=== PATIENT | male | born 1960 | race Asian ===

== ENCOUNTER 2019-07-22 07:51 | Inpatient (IN) | payer MEDICARE ==
[~2019-07-22] VITALS: Ht 172.7 cm; Wt 75.8 kg
[~2019-07-22 07:51] MED LIST: AZIT250T PO; CARV12 PO; GUAIFDM PO; LOSA-88 PO; NIFE-39 PO
[2019-07-22] MEDS ORDERED: SODIUM CHLORIDE 0.9% 1,000 ML IV ONE (08:45)
[2019-07-22 08:47] LABS: BASOPHILS % (AUTO) 0.2 % (0.0-2.0); EOSINOPHILS % (AUTO) 0.5 % (1.0-6.0); HEMATOCRIT 21.8 % (41-53); HEMOGLOBIN 7.2 g/dL (13.5-17.5); LYMPHOCYTES # (AUTO) 0.6 K/uL (1.0-4.8); LYMPHOCYTES % (AUTO) 4.9 % (22.0-44.0); MEAN CORPUSCULAR HEMOGLOBIN 29.6 pg (26.0-34.0); MEAN CORPUSCULAR VOLUME 90 fL (80-100); MONOCYTES # (AUTO) 0.7 K/uL (0.1-1.0); PLATELET COUNT (AUTO) 145 K/uL (150-450); RED BLOOD CELL COUNT(AUTO) 2.44 MIL/uL (4.50-5.90); RED CELL DISTRIBUTION WIDTH 14.5 % (11.5-14.5)
[2019-07-22 08:48] LABS: NEUTROPHILS % (AUTO) 88.4 % (40.0-70.0)
[2019-07-22 09:01] LABS: CALCIUM, TOTAL 6.9 mg/dL (8.8-10.5); CREATININE 10.06 mg/dL (0.60-1.30); POTASSIUM 4.1 mmol/L (3.5-5.1)
[2019-07-22 09:07] LABS: ALBUMIN 2.5 g/dL (3.4-5.0); BILIRUBIN,TOTAL 0.8 mg/dL (0.1-1.0); TOTAL PROTEIN, SERUM 6.1 g/dL (6.4-8.2)
[2019-07-22] MEDS ORDERED: IPRATROPIUM BROMIDE 0.5 MG/2.5 ML NEB SOLUTION NEB PRN (13:00)
[2019-07-22] MEDS ORDERED: ONDANSETRON HCL 4 MG/2 ML VIAL IVP PRN (13:00)
[2019-07-22] MEDS ORDERED: BISACODYL 10 MG RECTAL RECTAL SUPPOSITORY PR PRN (13:00)
[2019-07-22] MEDS ORDERED: 0.9% SODIUM CHLORIDE 10 ML SYRINGE IVP PRN (13:00)
[2019-07-22] MEDS ORDERED: DOCUSATE SODIUM 100 MG CAPSULE PO PRN (13:00)
[2019-07-22] MEDS ORDERED: ALBUTEROL SULFATE 2.5 MG/0.5 ML NEB SOLUTION NEB PRN (13:00)
[2019-07-22] MEDS: PANTOPRAZOLE SODIUM 40 MG DR TABLET PO SCH (13:04)
[2019-07-22 17:57] VITALS: BP 135/56
[2019-07-22 20:43] VITALS: BP 124/79
[2019-07-22] MEDS: ACETAMINOPHEN 325 MG TABLET PO PRN (20:50)
[2019-07-23] VITALS (9 sets, daily range): BP systolic 121–210; BP diastolic 65–89
[2019-07-23 07:24] LABS: BASOPHILS % (AUTO) 0.2 % (0.0-2.0); EOSINOPHILS % (AUTO) 0.3 % (1.0-6.0); HEMATOCRIT 21.7 % (41-53); HEMOGLOBIN 7.1 g/dL (13.5-17.5); LYMPHOCYTES # (AUTO) 0.6 K/uL (1.0-4.8); LYMPHOCYTES % (AUTO) 4.2 % (22.0-44.0); MEAN CORPUSCULAR HEMOGLOBIN 29.2 pg (26.0-34.0); MEAN CORPUSCULAR HGB CONC 32.9 G/dL (31.0-37.0); MEAN CORPUSCULAR VOLUME 89 fL (80-100); MONOCYTES # (AUTO) 1.1 K/uL (0.1-1.0); MONOCYTES % (AUTO) 7.4 % (2.0-9.0); NEUTROPHILS # (AUTO) 12.6 K/uL (1.8-7.7); PLATELET COUNT (AUTO) 221 K/uL (150-450); RED BLOOD CELL COUNT(AUTO) 2.45 MIL/uL (4.50-5.90); RED CELL DISTRIBUTION WIDTH 14.5 % (11.5-14.5)
[2019-07-23 07:28] LABS: NEUTROPHILS % (AUTO) 87.9 % (40.0-70.0)
[2019-07-23] MEDS ORDERED: SODIUM CHLORIDE 0.9% 2,000 ML ONE (07:28)
[2019-07-23 08:07] LABS: CALCIUM, TOTAL 6.5 mg/dL (8.8-10.5); CREATININE 11.75 mg/dL (0.60-1.30); FREE T4 (FREE THYROXINE) 1.15 ng/dL (0.76-1.46); POTASSIUM 4.3 mmol/L (3.5-5.1); THYROID STIMULATING HORMONE 0.37 uIU/mL (0.36-3.74)
[2019-07-23] MEDS: EPOETIN ALFA 10,000 UNITS/ML VIAL SQ SCH (08:49)
[2019-07-23] MEDS: PANTOPRAZOLE SODIUM 40 MG DR TABLET PO SCH (08:49)
[2019-07-23] MEDS ORDERED: SODIUM CHLORIDE 0.9% 1,000 ML ONE (09:35)
[2019-07-23] MEDS ORDERED: CloNIDine HCL 0.1 MG TABLET PO ONE (10:00)
[2019-07-23] MEDS ORDERED: AZITHROMYCIN 250 MG TABLET PO SCH (10:30)
[2019-07-23] MEDS ORDERED: *CLINICAL-CEFEPIME DOSING CLINICAL ONE (13:15)
[2019-07-23] MEDS ORDERED: VANCOMYCIN HCL 1 GM/D5% WATER 200 ML IV ONE (14:00)
[2019-07-23] MEDS ORDERED: VANCOMYCIN HCL 1 GM/D5% WATER 200 ML IV PRN (14:00)
[2019-07-23] MEDS ORDERED: SODIUM CHLORIDE 0.9% 250 ML IV ONE (14:51)
[2019-07-23] MEDS: ACETAMINOPHEN 325 MG TABLET PO PRN (15:23)
[2019-07-23] MEDS ORDERED: CEFEPIME HCL 1 GM in DEXTROSE 5%-WATER 50 ML IV ONE (17:00)
[2019-07-24 00:02] VITALS: BP 170/73
[2019-07-24 02:05] LABS: INFLUENZA TYPE A NEGATIVE FOR TYPE A (NEGATIVE); INFLUENZA TYPE B NEGATIVE FOR TYPE B (NEGATIVE)
[2019-07-24 04:38] VITALS: BP 167/84
[2019-07-24 07:33] LABS: BASOPHILS % (AUTO) 0.6 % (0.0-2.0); HEMATOCRIT 24.1 % (41-53); HEMOGLOBIN 8.3 g/dL (13.5-17.5); LYMPHOCYTES # (AUTO) 0.7 K/uL (1.0-4.8); LYMPHOCYTES % (AUTO) 5.6 % (22.0-44.0); MEAN CORPUSCULAR HEMOGLOBIN 30.5 pg (26.0-34.0); MEAN CORPUSCULAR HGB CONC 34.2 G/dL (31.0-37.0); MEAN CORPUSCULAR VOLUME 89 fL (80-100); MONOCYTES # (AUTO) 0.8 K/uL (0.1-1.0); MONOCYTES % (AUTO) 6.9 % (2.0-9.0); NEUTROPHILS # (AUTO) 10.3 K/uL (1.8-7.7); PLATELET COUNT (AUTO) 234 K/uL (150-450); RED BLOOD CELL COUNT(AUTO) 2.71 MIL/uL (4.50-5.90); RED CELL DISTRIBUTION WIDTH 14.5 % (11.5-14.5)
[2019-07-24 07:38] LABS: NEUTROPHILS % (AUTO) 85.9 % (40.0-70.0)
[2019-07-24 07:50] LABS: BILIRUBIN,TOTAL 0.5 mg/dL (0.1-1.0); CALCIUM, TOTAL 6.9 mg/dL (8.8-10.5); CREATININE 8.37 mg/dL (0.60-1.30); TOTAL PROTEIN, SERUM 5.7 g/dL (6.4-8.2)
[2019-07-24 07:55] VITALS: BP 154/84
[2019-07-24] MEDS: PANTOPRAZOLE SODIUM 40 MG DR TABLET PO SCH (08:00)
[2019-07-24] MEDS: AZITHROMYCIN 250 MG TABLET PO SCH (08:00)
[2019-07-24] MEDS ORDERED: CEFEPIME HCL 0.5 GM in DEXTROSE 5%-WATER 50 ML IV SCH (17:00)
[2019-07-24] MEDS: GuaiFENesin [SUGAR-FREE] 200 MG/10 ML SOLUTION UDCUP PO PRN (18:08)
[2019-07-24] MEDS: SEVELAMER CARBONATE 800 MG TABLET PO SCH (18:08)
[2019-07-24 19:00] VITALS: BP 168/73
[2019-07-24 23:58] VITALS: BP 119/93
[2019-07-25 05:08] VITALS: BP 196/80
[2019-07-25] MEDS: CloNIDine HCL 0.1 MG TABLET PO PRN (05:22)
[2019-07-25 06:33] VITALS: BP 164/87
[2019-07-25 08:04] VITALS: BP 169/75
[2019-07-25] MEDS: AZITHROMYCIN 250 MG TABLET PO SCH (08:06)
[2019-07-25] MEDS: SEVELAMER CARBONATE 800 MG TABLET PO SCH ×3 (08:06→17:51)
[2019-07-25] MEDS: PANTOPRAZOLE SODIUM 40 MG DR TABLET PO SCH (08:06)
[2019-07-25 11:21] LABS: BASOPHILS % (AUTO) 0.9 % (0.0-2.0); EOSINOPHILS % (AUTO) 2.4 % (1.0-6.0); HEMATOCRIT 24.1 % (41-53); HEMOGLOBIN 8.4 g/dL (13.5-17.5); LYMPHOCYTES # (AUTO) 0.7 K/uL (1.0-4.8); LYMPHOCYTES % (AUTO) 7.6 % (22.0-44.0); MEAN CORPUSCULAR HEMOGLOBIN 31.9 pg (26.0-34.0); MEAN CORPUSCULAR VOLUME 91 fL (80-100); MONOCYTES # (AUTO) 0.9 K/uL (0.1-1.0); MONOCYTES % (AUTO) 10.1 % (2.0-9.0); PLATELET COUNT (AUTO) 247 K/uL (150-450); RED BLOOD CELL COUNT(AUTO) 2.65 MIL/uL (4.50-5.90); RED CELL DISTRIBUTION WIDTH 14.8 % (11.5-14.5)
[2019-07-25 11:32] LABS: CALCIUM, TOTAL 6.8 mg/dL (8.8-10.5); CREATININE 10.53 mg/dL (0.60-1.30); POTASSIUM 4.3 mmol/L (3.5-5.1); VANCOMYCIN,RANDOM 17.5 mcg/mL (25.0-50.0)
[2019-07-25 11:56] VITALS: BP 149/68
[2019-07-25] MEDS ORDERED: VANCOMYCIN HCL 1 GM/D5% WATER 200 ML IV ONE (13:00)
[2019-07-25 16:09] VITALS: BP 140/74
[2019-07-25] MEDS: CefTRIAXone 1 GM/DEXTROSE 50 ML IV SCH (16:38)
[2019-07-25 20:12] VITALS: BP 178/76
[2019-07-26] VITALS (7 sets, daily range): BP systolic 146–194; BP diastolic 67–113
[2019-07-26 06:34] LABS: BASOPHILS % (AUTO) 0.9 % (0.0-2.0); EOSINOPHILS % (AUTO) 3.5 % (1.0-6.0); HEMATOCRIT 23.8 % (41-53); HEMOGLOBIN 8.1 g/dL (13.5-17.5); LYMPHOCYTES # (AUTO) 0.8 K/uL (1.0-4.8); MEAN CORPUSCULAR HEMOGLOBIN 31.5 pg (26.0-34.0); MEAN CORPUSCULAR HGB CONC 34.2 G/dL (31.0-37.0); MEAN CORPUSCULAR VOLUME 92 fL (80-100); MONOCYTES # (AUTO) 0.8 K/uL (0.1-1.0); MONOCYTES % (AUTO) 11.7 % (2.0-9.0); NEUTROPHILS # (AUTO) 4.9 K/uL (1.8-7.7); NEUTROPHILS % (AUTO) 71.9 % (40.0-70.0); PLATELET COUNT (AUTO) 276 K/uL (150-450); RED BLOOD CELL COUNT(AUTO) 2.58 MIL/uL (4.50-5.90); RED CELL DISTRIBUTION WIDTH 14.8 % (11.5-14.5)
[2019-07-26 06:39] LABS: CALCIUM, TOTAL 6.8 mg/dL (8.8-10.5); POTASSIUM 4.6 mmol/L (3.5-5.1)
[2019-07-26] MEDS ORDERED: AmLODIPine BESYLATE 10 MG TABLET PO SCH (09:00)
[2019-07-26] MEDS: SEVELAMER CARBONATE 800 MG TABLET PO SCH ×3 (09:06→18:38)
[2019-07-26] MEDS: PANTOPRAZOLE SODIUM 40 MG DR TABLET PO SCH (09:06)
[2019-07-26] MEDS: AZITHROMYCIN 250 MG TABLET PO SCH (09:06)
[2019-07-26] MEDS: EPOETIN ALFA 10,000 UNITS/ML VIAL SQ SCH (09:06)
[2019-07-26] MEDS: HydrALAZINE HCL 20 MG/ML VIAL IVP PRN ×2 (11:29→16:42)
[2019-07-26] MEDS: CloNIDine HCL 0.1 MG TABLET PO PRN ×2 (12:54→23:47)
[2019-07-26] MEDS: CefTRIAXone 1 GM/DEXTROSE 50 ML IV SCH (16:41)
[2019-07-26] MEDS: NIFEdipine 30 MG ER TABLET PO SCH (20:19)
[2019-07-27] VITALS (8 sets, daily range): BP systolic 137–188; BP diastolic 50–75
[2019-07-27] MEDS: HydrALAZINE HCL 20 MG/ML VIAL IVP PRN ×2 (04:12→20:37)
[2019-07-27 06:57] LABS: BASOPHILS % (AUTO) 1.2 % (0.0-2.0); HEMOGLOBIN 8.4 g/dL (13.5-17.5); LYMPHOCYTES # (AUTO) 0.8 K/uL (1.0-4.8); MEAN CORPUSCULAR HEMOGLOBIN 30.7 pg (26.0-34.0); MEAN CORPUSCULAR HGB CONC 33.7 G/dL (31.0-37.0); MEAN CORPUSCULAR VOLUME 91 fL (80-100); MONOCYTES # (AUTO) 0.8 K/uL (0.1-1.0); NEUTROPHILS # (AUTO) 4.2 K/uL (1.8-7.7); NEUTROPHILS % (AUTO) 69.8 % (40.0-70.0); PLATELET COUNT (AUTO) 310 K/uL (150-450); RED BLOOD CELL COUNT(AUTO) 2.75 MIL/uL (4.50-5.90); RED CELL DISTRIBUTION WIDTH 14.7 % (11.5-14.5)
[2019-07-27 07:15] LABS: CALCIUM, TOTAL 7.3 mg/dL (8.8-10.5); CREATININE 8.12 mg/dL (0.60-1.30); POTASSIUM 4.2 mmol/L (3.5-5.1)
[2019-07-27] MEDS: SEVELAMER CARBONATE 800 MG TABLET PO SCH ×3 (09:46→18:15)
[2019-07-27] MEDS: PANTOPRAZOLE SODIUM 40 MG DR TABLET PO SCH (09:46)
[2019-07-27] MEDS: GuaiFENesin [SUGAR-FREE] 200 MG/10 ML SOLUTION UDCUP PO PRN ×2 (09:46→14:47)
[2019-07-27] MEDS: CloNIDine HCL 0.1 MG TABLET PO PRN (09:47)
[2019-07-27] MEDS: NIFEdipine 30 MG ER TABLET PO SCH ×2 (09:47→20:38)
[2019-07-27] MEDS: AZITHROMYCIN 250 MG TABLET PO SCH (11:26)
[2019-07-27] MEDS: HydrALAZINE HCL 25 MG TABLET PO SCH ×2 (14:47→20:41)
[2019-07-27] MEDS: CefTRIAXone 1 GM/DEXTROSE 50 ML IV SCH (18:30)
[2019-07-28 03:21] VITALS: BP 144/71
[2019-07-28] MEDS ORDERED: SODIUM CHLORIDE 0.9% 2,000 ML ONE (06:59)
[2019-07-28 07:32] LABS: BASOPHILS % (AUTO) 1.1 % (0.0-2.0); EOSINOPHILS % (AUTO) 2.1 % (1.0-6.0); HEMATOCRIT 23.7 % (41-53); HEMOGLOBIN 8.1 g/dL (13.5-17.5); LYMPHOCYTES % (AUTO) 14.3 % (22.0-44.0); MEAN CORPUSCULAR HEMOGLOBIN 31.7 pg (26.0-34.0); MEAN CORPUSCULAR VOLUME 93 fL (80-100); MONOCYTES # (AUTO) 0.7 K/uL (0.1-1.0); MONOCYTES % (AUTO) 10.3 % (2.0-9.0); NEUTROPHILS % (AUTO) 72.2 % (40.0-70.0); PLATELET COUNT (AUTO) 305 K/uL (150-450); RED BLOOD CELL COUNT(AUTO) 2.54 MIL/uL (4.50-5.90); RED CELL DISTRIBUTION WIDTH 14.7 % (11.5-14.5)
[2019-07-28 07:45] LABS: CREATININE 9.85 mg/dL (0.60-1.30); POTASSIUM 4.6 mmol/L (3.5-5.1)
[2019-07-28 07:46] VITALS: BP 171/69
[2019-07-28] MEDS: HydrALAZINE HCL 25 MG TABLET PO SCH ×2 (09:00→13:18)
[2019-07-28] MEDS: SEVELAMER CARBONATE 800 MG TABLET PO SCH ×2 (09:05→12:32)
[2019-07-28 11:19] VITALS: BP 159/76
[2019-07-28] MEDS ORDERED: LEVO750T21 PO (11:26)
[2019-07-28] MEDS ORDERED: SEVE800T17 PO (11:26)
[2019-07-28] MEDS ORDERED: GUAIFDM PO (11:32)
[2019-07-28] MEDS ORDERED: AZIT250T9 PO (11:43)
[2019-07-28] MEDS ORDERED: AMOX500T2 PO (11:43)
[2019-07-28] MEDS: PANTOPRAZOLE SODIUM 40 MG DR TABLET PO SCH (12:31)
[2019-07-28] MEDS: AZITHROMYCIN 250 MG TABLET PO SCH (12:32)
[2019-07-28] MEDS: NIFEdipine 30 MG ER TABLET PO SCH (12:32)
[2019-07-28] MEDS: EPOETIN ALFA 10,000 UNITS/ML VIAL SQ SCH (12:33)
== END 2019-07-28 14:00 | disposition home or self-care (01) | DRG 871 ==
LOC: EMS 07:51 → 5N 16:49
PROVIDERS: ADMIT Internal Medicine; ATTEND Internal Medicine
PROC: 30233N1 Transfusion of Nonautologous Red Blood Cells into Peripheral Vein, Percutaneous Approach (ICD-10-PCS; principal; 2019-07-23)
PROC: 5A1D70Z Performance of Urinary Filtration, Intermittent, Less than 6 Hours Per Day (ICD-10-PCS; 2019-07-23)
PROC: 5A1D70Z Performance of Urinary Filtration, Intermittent, Less than 6 Hours Per Day (ICD-10-PCS; 2019-07-26)
PROC: 5A1D70Z Performance of Urinary Filtration, Intermittent, Less than 6 Hours Per Day (ICD-10-PCS; 2019-07-28)
DX: A41.9 Sepsis, unspecified organism (principal); N18.6 End stage renal disease; J18.9 Pneumonia, unspecified organism; I12.0 Hypertensive chronic kidney disease with stage 5 chronic kidney disease or end stage renal disease; R65.10 Systemic inflammatory response syndrome (SIRS) of non-infectious origin without acute organ dysfunction; D63.1 Anemia in chronic kidney disease; K57.30 Diverticulosis of large intestine without perforation or abscess without bleeding; K62.1 Rectal polyp; K64.8 Other hemorrhoids; D63.8 Anemia in other chronic diseases classified elsewhere; E21.3 Hyperparathyroidism, unspecified; Z99.2 Dependence on renal dialysis; Z79.899 Other long term (current) drug therapy
CPT/HCPCS: 70450; 74021; 84145; 84439; 84443; 86850; 86900; 86901; 86920; 87040; 87081; 87804; 93005; 93306; 93880; 93970; 97162; 99291; J0360; J0692; J0696; J0885; J3370; J7030; J7050; J7060; P9016